=== PATIENT | male | born 1995 | race Caucasian/White ===

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

== ENCOUNTER 2017-06-23 16:24 | Emergency (ER) | payer OTHER ==
[~2017-06-23] VITALS: Ht 165.1 cm; Wt 97.8 kg
[~2017-06-23 16:24] MED LIST: ALBU8.5H3 INH; PRED20TA PO
[2017-06-23 16:25] VITALS: Ht 165.1 cm; Wt 97.8 kg
[2017-06-23] MEDS ORDERED: ALBUTEROL 0.083% (NEB) 2.5 MG/3 ML AMP HHN STA (16:52)
[2017-06-23] MEDS ORDERED: IPRATROPIUM (NEB) 0.5 MG/2.5 ML AMP HHN ONE (17:00)
[2017-06-23] MEDS ORDERED: DEXAMETHASONE 10 MG/ML 1 ML INJ IM ONE (17:00)
[2017-06-23] MEDS ORDERED: ALBUTEROL 0.5% (NEB) 2.5 MG/0.5 ML AMP INH STA (17:50)
--- NOTE | 2017-06-23 18:02 | RADRPT ---
PROCEDURE: Chest x-ray CLINICAL INDICATION: Cough TECHNIQUE: Chest single view COMPARISON: 09/18/2008 FINDINGS: The heart is normal in size. The pulmonary vessels are normal in caliber. The lungs are clear. Th e costophrenic angles are sharp. The visualized bony thorax is unremarkable. IMPRESSION: No acute cardiopulmonary disease. RPTAT: HH .Carlos Perez MD, Date Time Electronically viewed and signed by .Carlos Perez MD, on 06/23/2017 18:02 .W/
[2017-06-23] MEDS ORDERED: PRED20TA PO (18:06)
[2017-06-23 19:26] VITALS: PULSE 132; RESP 22; TEMP 98.6
--- NOTE | 2017-06-26 03:59 | ERD ---
ER Documentation Chief Complaint Chief Complaint COUGH, COLD SYMPTOM FOR 2 DAYS. WHEEZING BILATERALLY. HX OF ASTHMA HPI Patient is a 21-year-old male presenting to the emergency department complaint asthma exacerbation with wheezing intermittently for 2 days. He has had a nonproductive cough which began today. He does have history of asthma and has been having to use his Ventolin inhaler at home more frequently. He denies fevers, chills, or other symptoms at this time. ROS All systems reviewed and are negative except as per history of present illness. Medications Home Meds Active Scripts Prednisone* (Prednisone*) 20 Mg Tab, 40 MG PO DAILY for 5 Days, #10 TAB Prov:ALLIE SCOTT PA-C 06/23/17 Albuterol Sulfate* (Proair HFA*) 8.5 Gm Hfa.aer.ad, 2 PUFF INH Q4, #1 INHALER Prov:EDUARDA TOBAR DO 11/03/16 Prednisone* (Prednisone*) 20 Mg Tab, 40 MG PO DAILY for 4 Days, TAB Prov:EDUARDA TOBAR DO 11/03/16 Allergies Allergies: Coded Allergies: No Known Allergy (Verified , 09/12/11) PMhx/Soc Medical and Surgical Hx: pt denies Surgical Hx History of Surgery: No Anesthesia Reaction: No Hx Neurological Disorder: No Hx Respiratory Disorders: Yes (asthma) Hx Cardiac Disorders: No Hx Psychiatric Problems: No Hx Miscellaneous Medical Probl: No Hx Alcohol Use: No Hx Substance Use: No Hx Tobacco Use: No Smoking Status: Never smoker Physical Exam Vitals Vital Signs Date Time Temp Pulse Resp B/P Pulse Ox O2 Delivery O2 Flow Rate FiO2 06/23/17 19:26 98.6 132 22 92 Room Air 06/23/17 17:56 99 22 99 21 06/23/17 17:00 118 18 94 21 06/23/17 16:25 98.0 22 131 134/83 95 Physical Exam Const: Nontoxic, well-appearing male in no acute distress. Head: Atraumatic Eyes: Normal Conjunctiva ENT: Normal External Ears, Nose and Mouth. Neck: Full range of motion..~ No meningismus. Resp: Mild bilateral inspiratory wheezing noted to all lung duron. No crackles. No retractions. No signs of respiratory distress. Cardio: Regular rate and rhythm, no murmurs Skin: No petechiae or rashes Ext: No cyanosis, or edema Neur: Awake and alert Psych: Normal Mood and Affect Results 24 hrs Current Medications Medications (Trade) Dose Ordered Sig/Dina Route PRN Reason Start Time Stop Time Status Last Admin Dose Admin Albuterol (Proventil 0.083% (Neb)) 5 mg ONCE STAT HHN 06/23/17 16:52 06/23/17 16:53 DC 06/23/17 17:00 Ipratropium [place] (Atrovent 0.02% (Neb)) 0.5 mg ONCE ONCE HHN 06/23/17 17:00 06/23/17 17:01 DC 06/23/17 17:00 Dexamethasone (Decadron) 10 mg ONCE ONCE IM 06/23/17 17:00 06/23/17 17:01 DC 06/23/17 17:08 Albuterol (Proventil 0.5% (Neb)) 5 mg ONCE STAT INH 06/23/17 17:50 06/23/17 17:52 DC 06/23/17 17:56 Procedures/MDM 21-year-old male presenting to the emergency department for asthma exacerbation. The patient's vital signs were stable, although his pulse ox was slightly lower than 95%. The patient was treated in the department with albuterol and ipratropium breathing treatment. He was given IM Decadron. He was significantly improved prior to discharge and pulse ox improved to 99% on room air. Chest x-ray showed no acute abnormalities. The patient was stable for discharge with diagnosis of asthma exacerbation. He was given prescriptions for home. No evidence of status asthmaticus, pneumothorax, pulmonary embolism, or other emergencies at time of discharge. No evidence of life-threatening pathology at time of discharge. Pt/family in agreement with discharge plan/diagnosis. Pt/family advised to return immediately with any new or worsening symptoms. Follow-up with primary care physician within the next 1-2 days. PROCEDURE: Chest x-ray CLINICAL INDICATION: Cough TECHNIQUE: Chest single view COMPARISON: 09/18/2008 FINDINGS: The heart is normal in size. The pulmonary vessels are normal in caliber. The lungs are clear. The costophrenic angles are sharp. The visualized bony thorax is unremarkable. IMPRESSION: No acute cardiopulmonary disease. RPTAT: HH .Carlos Perez MD, MD Date Time Electronically viewed and signed by .Carlos Perez MD, MD on 06/23/2017 18:02 Departure Diagnosis: Primary Impression: Asthma exacerbation Asthma severity: unspecified severity Asthma persistence: unspecified Qualified Code: J45.901 - Exacerbation of asthma, unspecified asthma severity, unspecified whether persistent Condition: Fair Patient Instructions: Asthma Medications, My Asthma Symptom Diary Additional Instructions: Follow up with your PCP within the next 1-3 days for a repeat evaluation. If you require a referral to a specialist, your Primary Care Provider may be able to provide this for you. In most patient cases, a referral is not required. If you have further questions regarding this matter, please ask your Primary Care Provider. Return the the emergency department immediately if symptoms worsen or change. If you have any questions regarding medications, ask your pharmacist or us before you leave. If any adverse reactions, occur while taking your medications, discontinue the treatment and return to the emergency department immediately. If any new or worsening symptoms, uncontrolled fevers, or other unexplained symptoms occur, return to the emergency department immediately. Take your medications as directed, and complete the entire course of treatment. ALLIE SCOTT PA-C Jun 26, 2017 03:59
== END 2017-06-23 19:25 | disposition home or self-care (01) ==
LOC: FTE 16:24
DX: J45.901 Unspecified asthma with (acute) exacerbation (principal)
CPT/HCPCS: 71010; 94644; 94664; 96372; J1100; Z7502; Z7610